=== PATIENT | male | born 1965 | race African-American/Black ===

== ENCOUNTER 2021-01-23 10:50 | Emergency (ER) | payer OTHER, SELFPAY ==
[2021-01-23 10:52] VITALS: BP 153/93; PULSE 87; RESP 18; TEMP 36.3; O2SAT 99
--- NOTE | 2021-01-23 11:45 | ED.EYEPROB ---
HPI - Eye Problem General Chief complaint: Eye Problems Stated complaint: eye swelling Time Seen by Provider: 01/23/21 11:11 Source: patient Mode of arrival: ambulatory Limitations: no limitations History of Present Illness HPI Narrative: Patient is a 55-year-old male who presents complaining of swelling to bilateral eyes this a.m. He denies visual changes, drainage or discharge from eyes. He denies injury. Patient denies using new soaps or detergents or eating any new foods. Patient lives at assisted living facility. He denies using any [id number] medications for relief. chief complaint: other (Swelling bilateral) Related Data Allergies Allergy/AdvReac Type Severity Reaction Status Date / Time No Known Allergies Allergy Verified 01/23/21 11:33 Review of Systems Review of Systems: Narrative: CONSTITUTIONAL: Denies fever, chills, or sweats. EYES: Denies visual changes, redness, or discharge. Reports swelling to bilateral eyes ENT: Denies rhinorrhea, congestion, sore throat, or otalgia. CARDIOVASCULAR: Denies chest pain, palpitations, or edema. RESPIRATORY: Denies cough or dyspnea. GASTROINTESTINAL: Denies abdominal pain, nausea, vomiting, or diarrhea. GENITOURINARY: Denies dysuria or hematuria. SKIN: Denies rash or itching. MUSCULOSKELETAL: Denies back pain, joint pain, or myalgia. NEUROLOGIC: Denies headache, numbness, dizziness, or weakness. PSYCHIATRIC: Denies anxiety or depression. [facility] Past Medical History Medical History (Updated 01/23/21 @ 13:01 by MARY KAY De Leon) HTN (hypertension) Schizophrenia Social History Social History (Updated 01/23/21 @ 11:48 by MARY KAY De Leon) Smoking status: Never smoker Alcohol intake: never Substance use: never Living arrangements: [facility] Gender identity (if verbalized by the patient): Male Comments At the time of signature, I have reviewed and agree with nursing past medical, surgical, social, and family history unless otherwise noted. Please see nursing chart for further information. There is no relevant family history pertinent to the presenting complaint. Exam Narrative: Exam Narrative: GENERAL: Well-appearing, well-nourished, and in no acute distress. HEAD: Normocephalic, atraumatic. EYES: EOMI. No redness or drainage. Conjunctiva are normal. Mild edema to bilateral upper eyelids and surrounding area. ENT: Mucous membranes pink and moist. Nares clear. No rhinorrhea. TMs normal bilaterally. Throat normal. Uvula midline. NECK: AROM. Supple. No lymphadenopathy. CHEST: No respiratory distress. Clear to auscultation. HEART: Regular rate and rhythm. EXTREMITIES: Normal range of motion. No edema. SKIN: Warm, dry, no rash. NEURO: No focal deficits. Alert and oriented x3. Gait steady. PSYCH: Normal affect. No signs of depression or anxiety. Course Vital Signs Vital signs: Vital Signs Temperature 36.3 C L 01/23/21 10:52 Pulse Rate 87 01/23/21 10:52 Respiratory Rate 18 01/23/21 10:52 Blood Pressure 153/93 H 01/23/21 10:52 Pulse Oximetry 99 01/23/21 10:52 Temperature 36.3 C L 01/23/21 10:52 Pulse Rate 80 01/23/21 12:53 Respiratory Rate 12 01/23/21 12:53 Blood Pressure 159/97 H 01/23/21 12:53 Pulse Oximetry 96 01/23/21 13:14 Reviewed. Patient has been instructed to follow-up with his PCP regarding his blood pressure. Critical Care Time Critical Care Time Critical Care Time: No Discharge Plan Discharge Clinical Impression: Allergic reaction Qualifiers: Encounter type: initial encounter Qualified Code(s): T78.40XA - Allergy, unspecified, initial encounter Patient Disposition: Home, Self-Care Condition: Stable Additional Instructions: Take Benadryl and prednisone as directed. Cool compresses to your eyes. Follow-up with your PCP in 3 to 5 days if symptoms persist. If you develop visual difficulties, swelling of your face or shortness of breath, please return to the emergency
[2021-01-23] MEDS: diphenhydrAMINE HCl CAP 25 MG CAPSULE PO (12:19)
[2021-01-23 12:53] VITALS: BP 159/97; PULSE 80; RESP 12
[2021-01-23 13:14] VITALS: O2SAT 96
== END 2021-01-23 13:15 | disposition home or self-care (01) ==
PROVIDERS: Emergency Provider Nurse Practitioner; PCP Internal Medicine
DX: T78.40XA Allergy, unspecified, initial encounter (principal); I10 Essential (primary) hypertension
CPT/HCPCS: 99283; A9270